=== PATIENT | female | born 1955 | race African-American/Black ===

== ENCOUNTER 2024-03-24 10:13 | Emergency (ER) | payer OTHER ==
[~2024-03-24] VITALS: Ht 154.9 cm; Wt 80.0 kg
[~2024-03-24 10:13] MED LIST: GLIP10TA3; INSU1INS2; METF-415
[2024-03-24 10:14] VITALS: O2SAT 98
[2024-03-24 11:31] LABS: CHLORIDE 102 mEq/L (98-107); POTASSIUM 5.3 mEq/L (3.5-5.1); SODIUM 136 mEq/L (136-145)
[2024-03-24 11:32] LABS: CARBON DIOXIDE 26 mEq/L (21-32)
[2024-03-24 11:33] LABS: CALCIUM 9.5 mg/dL (8.7-10.4)
[2024-03-24 11:37] LABS: CREATININE 1.1 mg/dL (0.6-1.0); GLUCOSE 229 mg/dL (70-105)
[2024-03-24 11:38] LABS: UREA NITROGEN BLOOD 13 mg/dL (9-23)
[2024-03-24 11:39] LABS: TROPONIN I HIGH SENSITIVITY 10 ng/L (3.0-34)
[2024-03-24 11:45] LABS: BASOPHILS % 0.3 % (0.0-2.0); EOSINOPHILS % 0.3 % (0.0-5.0); HEMATOCRIT. 39.3 % (36.0-48.0); LYMPHOCYTES % 18.6 % (20.0-50.0); MEAN CORPUSCULAR HEMOGLOBIN 30.6 pg (28.0-32.0); MEAN CORPUSCULAR VOLUME 92.8 fL (81.0-99.0); MEAN PLATELET VOLUME 9.5 fl (7.4-10.4); MONOCYTES % 10.4 % (2.0-8.0); NEUTROPHILS % 70.4 % (40.0-76.0); PLATELET 199 x1000/uL (130-400); RED BLOOD CELL COUNT 4.24 mill/uL (4.2-5.4); RED CELL DISTRIBUTION WIDTH 13.3 % (11.6-14.6); WHITE BLOOD COUNT 7.2 x1000/uL (4.5-11.0)
[2024-03-24 11:46] LABS: ETHANOL BLOOD < 10 mg/dL (<10)
[2024-03-24 12:04] LABS: CLARITY URINE CLOUDY (CLEAR); COLOR URINE YELLOW (YELLOW); PROTEIN URINE 1+ (NEGATIVE)
[2024-03-24 12:05] LABS: GLUCOSE URINE 2+ (NEGATIVE); KETONES URINE NEGATIVE (NEGATIVE); LEUKOCYTE ESTERASE URINE NEGATIVE (NEGATIVE); NITRITE URINE NEGATIVE (NEGATIVE); OCCULT BLOOD URINE TRACE (NEGATIVE); UROBILINOGEN URINE 0.2 E.U./dL (0.2-1.0)
[2024-03-24 12:06] LABS: SPECIFIC GRAVITY URINE 1.024 (1.005-1.030)
[2024-03-24 12:11] LABS: BACTERIA URINE 4+; SQUAMOUS EPITHELIAL CELL URINE 1+ /lpf (RARE/1+); WBC URINE 15-25 /hpf (0-2); YEAST URINE NONE SEEN
[2024-03-24] MEDS: ASPIRIN 325MG EC TABLET PO ONE (12:42)
[2024-03-24] MEDS: CEFTRIAXONE 1GM/50ML 50 ML IV ONE (12:42)
[2024-03-24 13:00] LABS: PROTHROMBIN TIME 11.2 sec (9.6-11.0)
[2024-03-24 13:00] LABS: *AMPHETAMINES SCREEN URINE NEGATIVE (NEGATIVE); *BARBITURATES SCREEN URINE NEGATIVE (NEGATIVE); *BENZODIAZEPINES SCREEN URINE NEGATIVE (NEGATIVE); *COCAINE SCREEN URINE NEGATIVE (NEGATIVE); CANNABINOID URINE SCREEN NEGATIVE (NEGATIVE); ECSTASY MDMA SCREEN URINE NEGATIVE (NEGATIVE); METHADONE URINE SCREEN NEGATIVE (NEGATIVE); OPIATES URINE SCREEN NEGATIVE (NEGATIVE); PHENCYCLIDINE URINE SCREEN NEGATIVE (NEGATIVE)
[2024-03-24] MEDS: IOHEXOL-350 100 ML BOTTLE ONE (13:15)
[2024-03-24 14:41] VITALS: BP 149/80; PULSE 79; RESP 14; TEMP 36.9; O2SAT 97
== END 2024-03-24 15:06 | disposition short-term general hospital (02) ==
LOC: ER 10:13
DX: N39.0 Urinary tract infection, site not specified (principal); G93.40 Encephalopathy, unspecified; E11.65 Type 2 diabetes mellitus with hyperglycemia; R00.0 Tachycardia, unspecified; I10 Essential (primary) hypertension; Z79.899 Other long term (current) drug therapy
CPT/HCPCS: 80305; 80048; 81003; 80320; 82962; 85025; 85610; 87086; 87186; 84484; 87077; 36415; 71045; 70496; 70498; 70450; 93005; 96365; 99285; Q9967; J0696; G0480